=== PATIENT | female | born 1975 | race Caucasian/White ===

== ENCOUNTER 2020-06-01 03:06 | Emergency (ER) | payer BC, SELFPAY ==
[2020-06-01 03:09] VITALS: BP 146/121; PULSE 100; RESP 16; TEMP 36.7; O2SAT 98; BMI 35.5
--- NOTE | 2020-06-01 03:12 | ED.DCSUM_ITS ---
History of Present Illness Chief Complaint: Flank Pain Informant: Patient Narrative: 45-year-old female with history of kidney stones presents with left-sided flank pain that began about 1 AM. She states been intermittent but now it is constant. She states she has been having episodes of hematuria for months. She has had to have lithotripsy and laser ablation for previous kidney stones. She has previously seen Dr. Shields who is her urologist Prior similar symptoms: Yes Past Medical History - Allergies and Home Meds Allergies/Adverse Reactions: Allergies citalopram [From Celexa] Allergy (Verified 06/01/20 03:08) Nausea tape Allergy (Uncoded 06/01/20 03:08) Rash Primary Care Physician: [facility] Doctor,Out of [NON-STAFF] - Prior records reviewed: Yes Past Medical History: - - Depression, Narcalepsy Surgical History: - - Lithotripsy, laser ablation calculi Smoking Status: Current every day smoker Review of Systems General: Denies: Chills, Fever, Sweats Eyes: Denies: Visual changes - bilaterally, Diplopia ENT: Denies: Rhinorrhea, Sore throat Cardiovascular: Denies: Chest pain, Palpitations Respiratory: Denies: Dyspnea, Cough, Dyspnea on exertion Gastrointestinal: Reports: Abdominal pain, Nausea. Denies: Melena, Hematochezia Musculoskeletal: Reports: - - Left flank pain. Denies: Myalgias, Arthralgias Skin: Denies: Rash Neurological: Denies: Headache Psych: Denies: Depression, Anxiety Physical Exam Inital Vital Signs reviewed: Yes General: Obese, No Acute Distress Head: Normocephalic, Atraumatic Eyes: Perrl, EOMI ENT: Moist mucous membranes Cardiovascular: Regular rate, Regular rhythm Respiratory: No distress, CTA bilaterally Abdomen: Soft - Mild tenderness to palpation left flank/left lower quadrant. abdomen non-peritoneal. Back: CVA tenderness - Left Extremities: Nontender Skin: Normal color, No rash Neurological: Alert, Oriented x3 Diagnostic/Tx/Re-eval Laboratory Data 06/01/20 06/01/20 06/01/20 03:10 03:22 03:22 WBC 8.4 RBC 4.95 Hgb 14.1 Hct 42.8 MCV 86.5 MCH 28.5 MCHC 32.9 RDW Std Deviation 39.5 RDW Coeff of Joce 12.6 Plt Count 219 MPV 9.9 Immature Gran % (Auto) 0.400 Neut % (Auto) 53.1 Lymph % (Auto) 35.6 [place] % (Auto) 7.3 Eos % (Auto) 2.9 Baso % (Auto) 0.7 Absolute Neuts (auto) 4.5 Absolute Lymphs (auto) 2.98 Nucleated RBC % 0 Differential Comment COMMENT Sodium 137 Potassium 4.1 Chloride 106 Carbon Dioxide 25.0 Anion Gap 6 BUN 15 Creatinine 1.12 H Estim Creat Clear Calc 60.63 Est GFR (MDRD) Af Amer 68 Est GFR (MDRD) Non-Af 56 L BUN/Creatinine Ratio 13.4 Glucose 135 H Calcium 9.2 Urine Color Red Urine Clarity Turbid Urine pH 5.0 Ur Specific [place] 1.030 Urine Protein 100 H Urine Glucose (UA) Normal Urine Ketones 15 H Urine Occult Blood 250 H Urine Nitrite Negative Urine Bilirubin Negative Urine Urobilinogen 1 H Ur Leukocyte Esterase 25 H Urine RBC > 100 SEEN Urine WBC 5-10 SEEN Ur Squamous Epith Cells 0-5 SEEN Ur Transition Epith Cell 0-5 SEEN Urine Bacteria 2+ Urine Mucus [address] abdomen pelvis without contrast: 7 mm stone in the distal left ureter, above the ureterovesicular junction, with changes of mild acute obstructive uropathy - Medical Decision Making Presents with left flank pain and hematuria. This started about 1 AM. She does have a significant history of kidney stones. Patient was given Toradol, morphine, Zofran and felt much improved. Her blood work was unremarkable. Urinalysis does show blood as well as leukocyte esterase and 2+ bacteria. Believe this is contaminated however. This was sent for culture. Patient states she is currently on Augmentin for a dental issue. Patient states that she can follow-up with her urologist, Dr. Shields if her symptoms are not improving. She was given return precautions Impression: 1. 7 mm ureteral stone 1. Hematuria ED Disposition - Plan for ED Patient: Disposition: Home or Assisted Living Instructions: ED Renal Stone w Col[facility] Referrals: [facility],Out of [NON-STAFF] -
[2020-06-01 03:13] LABS: Mucous, Urine 0 SEEN /hpf (<or=2+)
[2020-06-01 03:17] LABS: Color, Urine Red (Yellow); Glucose, Dipstick Normal (Normal); Ketone-Dipstick 15 mg/dl (Negative); Leukocyte Esterase-Dipstick 25 /ul (Negative); Nitrite-Dipstick Negative (Negative); Occult Blood-Urine 250 /ul (Negative); Protein-Dipstick 100 mg/dl (Negative); Urine Bilirubin Dipstick Negative (Negative); Urine Clarity Turbid (Clear); Urine Urobilinogen 1 mg/dl (Normal)
[2020-06-01] MEDS: Ondansetron 4 MG/2 ML Vial IV (03:21)
[2020-06-01] MEDS: Ketorolac 30 MG/ML Syringe IV (03:22)
[2020-06-01] MEDS: Morphine 4 MG/ML Syringe IV (03:28)
[2020-06-01 03:29] LABS: Absolute Lymphocyte Count 2.98 X10^3/uL (0.83-4.51); Absolute Neutrophil Count 4.5 X10^3/uL (2.0-7.7); Basophil# 0.06 X10^3/uL; Basophil% 0.7 % (0-1); Eosinophil# 0.24 X10^3/uL; Eosinophils% 2.9 % (0-5); Hematocrit 42.8 % (37-47); Hemoglobin 14.1 g/dL (12.0-15.0); Lymphocyte # 2.98 X10^3/ul (4.0); Lymphocyte % 35.6 % (19-41); Mean Corp Hgb Conc 32.9 g/dL (32-36); Mean Corpuscular Hgb 28.5 pg (27.0-32.0); Mean Corpuscular Volume 86.5 fL (81-99); Mean Platelet Vol. 9.9 fl (6.2-12.0); Monocyte# 0.61 X10^3/uL; Monocyte% 7.3 % (0-10); NRBC Flagged by Analyzer 0 % (0-5); Neutrophil # 4.45 X10^3/uL (2.7-7.7); Neutrophil % 53.1 % (47-70); POSITIVE COUNT YES; Platelet Count 219 K/mm3 (150-450); RBC Distribution Width CV 12.6 % (11.6-14.6); RBC Distribution Width SD 39.5 fl (35.1-43.9); Red Blood Count 4.95 M/mm3 (4.2-5.4); White Blood Count 8.4 K/mm3 (4.4-11.0)
[2020-06-01 03:31] LABS: Differential Indicated SCAN CRITERIA MET
[2020-06-01 03:33] LABS: Red Blood Cells-Urine > 100 SEEN /hpf (0-5)
[2020-06-01 03:34] LABS: White Blood Cells 5-10 SEEN /hpf (0-5)
[2020-06-01 03:35] LABS: Squamous Epithelial Cells - UA 0-5 SEEN /hpf (5-10)
[2020-06-01 03:38] LABS: Transitional Epithelial - Ur 0-5 SEEN /hpf (0-5)
[2020-06-01 03:39] LABS: Bacteria 2+ /hpf (None Seen)
--- NOTE | 2020-06-01 03:45 | CT_ITS ---
STUDY: CT ABDOMEN AND PELVIS WITHOUT CONTRAST REASON FOR EXAM: Female, 45 years old. LEFT FLANK PAIN, HX KS WITH 2 LITHOTRIPSY''S, HYSTERECTOMY RADIATION DOSAGE (If Supplied By Facility): CTDIvol = ( 33.59 ) mGy, DLP = ( 1795.82 ) mGycm TECHNIQUE: Transaxial images were obtained from the dome of the diaphragm to the symphysis pubis without oral contrast, and without intravenous contrast. Sagittal and coronal images were reconstructed. Individualized dose optimization techniques were used for this CT. COMPARISON: None. FINDINGS: The visualized lung bases are unremarkable. The visualized portions of the heart are within normal limits. There is decreased attenuation of the liver consistent with steatosis. Hepatomegaly. Normal gallbladder and extrahepatic biliary system. Normal spleen. Normal pancreas. Normal bilateral adrenal glands. Bilateral nonobstructing renal stones. 7 mm stone in the distal left ureter, above the ureterovesical junction, with changes of mild acute obstructive uropathy. Normal visualized stomach. Normal small intestine. Normal colon. The appendix is visualized and appears normal. Normal abdominal aorta. Normal inferior vena cava. Normal retroperitoneum. Normal urinary bladder. Normal abdominal wall. Postoperative lower lumbar changes. CT/Abdomen/Pelvis without Cont IMPRESSION: 7 mm stone in the distal left ureter, above the ureterovesical junction, with changes of mild acute obstructive uropathy. Electronically Signed: Rolando Goldstein MD at 4:28 EDT Tel , Service support ,
[2020-06-01 03:58] LABS: Anion Gap 6 (5-15); BUN 15 mg/dL (7-18); BUN/Creat Ratio 13.4 RATIO (10-20); Calcium,Total 9.2 mg/dL (8.5-10.1); Chloride 106 mmol/L (98-107); Creatinine, Serum 1.12 mg/dL (0.55-1.02); EST Glomerular Filtration Rate 56 mL/min (>60); Est Glom Filt Rate - Afr Amer 68 mL/min (>60); Estimated Creatinine Clearance 60.63 ml/min; Glucose 135 mg/dL (74-106); Potassium 4.1 mmol/L (3.5-5.1); Sodium Level 137 mmol/L (136-145)
[2020-06-01] MEDS: proMETHazine 25 MG/ML Syringe 12.5 MG IV (05:08)
[2020-06-01] MEDS: oxyCODONE 5 MG Tablet PO (05:13)
[2020-06-01 05:23] VITALS: BP 133/85; PULSE 87; RESP 16; O2SAT 98
== END 2020-06-01 05:43 | disposition home or self-care (01) ==
PROVIDERS: Emergency Provider Student in an Organized Health Care Education/Training Program
DX: N20.1 Calculus of ureter (principal); Z87.442 Personal history of urinary calculi; F17.200 Nicotine dependence, unspecified, uncomplicated; F32.9 Major depressive disorder, single episode, unspecified; E66.9 Obesity, unspecified
CPT/HCPCS: 74176; 80048; 81001; 85025; 87086; 96374; 96375; 99285; J7030; A4216; J2405

== ENCOUNTER 2020-06-05 10:59 | Day surgery (SDC) | payer BC, SELFPAY ==
[2020-06-05 11:15] VITALS: BP 118/73; PULSE 84; RESP 5; TEMP 36.4; O2SAT 99; BMI 38.5
[2020-06-05] MEDS: Lactated Ringers 1,000 ML 100 ML IV (11:25)
--- NOTE | 2020-06-05 11:33 | PCM.HP.STD ---
Problem List (1) Left ureteral calculus Status: Acute History of Present Illness Date of Admission: 06/05/20 Chief Complaint: Left obstructing ureteral calculi The patient is a 45 year old female who presents with obstructing stone in the distal left ureter plan to proceed with left ureteroscopy and laser lithotripsy of stone Past Medical History Allergies citalopram [From Celexa] Allergy (Verified 06/05/20 11:03) Nausea tape Allergy (Uncoded 06/05/20 11:03) Rash Home Medications: Ambulatory Orders Medication Instructions Recorded Amoxicillin/Potassium Clav 1 ea PO BID 06/01/20 [Augmentin 500-125 Tablet] Aripiprazole [Abilify] 2 mg PO DAILY 06/01/20 Dextroamphetamine/Amphetamine 10 mg PO BID 06/01/20 [Adderall 10 mg Tablet] Lactobacillus Acidophilus 1 ea PO DAILY 06/01/20 [Acidophilus Lactobacilli] Ondansetron [Ondansetron Odt] 4 mg PO Q8H PRN PRN #20 tab.rapdis 06/01/20 Tamsulosin HCl [Flomax] 0.4 mg PO DAILY #14 cap 06/01/20 buPROPion XL [Wellbutrin Xl] 300 mg PO DAILY 06/01/20 Surgical History: - - Lithotripsy, laser ablation calculi Smoking Status: Former smoker Tobacco Use: Non-smoker Review of Systems Constitutional: Denies: Chills, Fever, Weight Change HEENT: Denies: Head Aches, Sinus Congestion, Sinus Drainage Cardiovascular: Denies: Chest Pain, Palpitations Respiratory: Denies: Cough, Shortness of breath at rest, Sputum production Gastrointestinal: Denies: Abdominal Pain, Nausea, Vomiting Genitourinary: Denies: Dysuria Musculoskeletal: Denies: Joint Pain, Joint Tenderness Skin: Denies: Rash, Wounds Neurological: Denies: Numbness, Tingling, Focal weakness Psychiatric: Denies: Anxiety, Depression, Homicidal Ideations, Suicidal Ideations Hematologic/ Lymphatic: Denies: Easy Bruising, Easy Bleeding VTE Information - Inpt Only VTE Present on Admission: No VTE Mechan Device Prophylaxis: SCD's Patient Problems: Active and Suspected Problems Left ureteral calculus (Acute) - Physical Exam Vitals/I&O's: Vital Signs Temp Pulse Resp BP Pulse Ox 97.6 F L 84 5 L 118/73 99 06/05/20 11:15 06/05/20 11:15 06/05/20 11:15 06/05/20 11:15 06/05/20 11:15 Oxygen Delivery Method Room Air Weight: 108.1 kg Body Mass Index (BMI) 38.5 General: Alert, Oriented x3, Cooperative HEENT: Atraumatic, PERRLA, EOMI, Normocephalic Neck: Supple, No JVD, Negative Carotid Bruits Lungs: Clear to auscultation, Normal air movement Cardiovascular: Regular rate, No murmurs Abdomen: Bowel Sounds Present, Soft, Non Tender Extremities: No edema, Capillary Refill Less than 3 Seconds Skin: No rashes, No breakdown Musculoskeletal: No Tenderness to Palpation of Joints or Extremities Neurological: Cranial nerves II-XII grossly intact Psych/Mental Status: Normal Affect, Appropriate Current Medications Lactated Ringer's () 1,000 mls @ 100 mls/hr IV .Q10H INA Last Admin: 06/05/20 11:25 Dose: 100 mls/hr Documented by: Assessment/Plan All Active Problems Left ureteral calculus (Acute) Plan for left ureteroscopy laser lithotripsy of stone
--- NOTE | 2020-06-05 11:35 | DCINST_ITS ---
Discharge Diet: No Restrictions, Light diet - advance as tolerated Discharge Activity: Return to Normal Activity, May Not Drive - for 2 days. Additional Activity Instructions:: Please be aware that pain medications may cause nausea. You should typically eat light foods as you take your pain medication. Pain medication may cause constipation, if this is a problem for you, please discuss with your doctor. Allergies/Adverse Reactions: Allergies citalopram [From Celexa] Allergy (Verified 06/05/20 11:03) Nausea tape Allergy (Uncoded 06/05/20 11:03) Rash Medications to take at Discharge Amoxicillin/Potassium Clav [Augmentin 500-125 Tablet] 1 ea PO BID 06/01/20 Aripiprazole [Abilify] 2 mg PO DAILY 06/01/20 Dextroamphetamine/Amphetamine [Adderall 10 mg Tablet] 10 mg PO BID 06/01/20 Lactobacillus Acidophilus [Acidophilus Lactobacilli] 1 ea PO DAILY 06/01/20 Ondansetron [Ondansetron Odt] 4 mg PO Q8H PRN PRN #20 tab.rapdis 06/01/20 Tamsulosin HCl [Flomax] 0.4 mg PO DAILY #14 cap 06/01/20 buPROPion XL [Wellbutrin Xl] 300 mg PO DAILY 06/01/20 Primary Care Physician: GABRIELA GUERRERO [Other] Test Results: Test results from this visit will be discussed in further detail at your follow- up appointment, if applicable. Please Follow Up With: Dylon Prince MD When: please call to make an appointment with an XRay
[2020-06-05] MEDS: Cefazolin 2 GM in 0.9% Normal Saline 100 ML IV (11:58)
--- NOTE | 2020-06-05 12:21 | OP.PCM_ITS ---
Problem List (1) Left ureteral calculus Status: Acute Report of Operation Date of Procedure: 06/05/20 Pre-Operative Diagnosis: Left ureteral calculi Post-Operative Diagnosis: Same Surgery/Procedure Performed:: Cystoscopy, balloon dilation of the left ureter, left ureteroscopy laser surgery of stone left stent placement Description of Surgical Findings:: 45-year-old female taken back to the operating room at the smooth induction of general anesthesia she was placed in dorsolithotomy position, the urethra and vaginal area prepped and draped in usual sterile fashion, went into the bladder with a 21 [place] rigid cystourethroscope cannulated the left ureteral orifice with a Glidewire advanced a wire past the stone balloon dilated the distal left ureter. I then went up to the stone and was able to reach the stone with a semirigid ureteroscope I then engage the stone and laser lithotripsy using a 275 ?m laser fiber laser the stone little tiny pieces, the stone broke up with low tiny pieces all flushed into the bladder I then advanced a wire up into the kidney of the wire place a stent a 6 [place]gasque by 24 cm stent. Patient's bladder was drained anesthetic was reversed plan to see her next week with an x-ray and we can plan to treat the other remaining stones in the kidney with shockwave lithotripsy. Type of Anesthesia:: General Drains: stent left side
[2020-06-05 12:27] VITALS: BP 105/80; BP 118/73; PULSE 103; RESP 18; TEMP 36.4; O2SAT 97
[2020-06-05] MEDS: Ketorolac 30 MG/ML Syringe IV (12:36)
[2020-06-05 12:45] VITALS: BP 102/77; BP 118/73; PULSE 91; RESP 16; O2SAT 92
[2020-06-05 12:56] VITALS: BP 114/81; BP 118/73; PULSE 88; RESP 16; TEMP 36.4; O2SAT 94
[2020-06-05 14:10] VITALS: BP 118/73
== END 2020-06-05 14:13 | disposition home or self-care (01) ==
LOC: SDC 11:01 → AC 11:05
PROVIDERS: Anesthesiology; Referring Provider Urology; Visit Provider Urology
PROC: 0TJ98ZZ Inspection of Ureter, Via Natural or Artificial Opening Endoscopic (ICD-10-PCS; CPT 52352; principal; 2020-06-05 12:55)
DX: N20.1 Calculus of ureter (principal); F41.9 Anxiety disorder, unspecified; F32.9 Major depressive disorder, single episode, unspecified; Z11.59 Encounter for screening for other viral diseases; Z79.899 Other long term (current) drug therapy; Z87.891 Personal history of nicotine dependence; Z86.711 Personal history of pulmonary embolism; Z87.442 Personal history of urinary calculi
CPT/HCPCS: 00918; 52356; 87635; G2023; J7120; C2617; J2405; U0003

== ENCOUNTER 2020-07-24 07:51 | Day surgery (SDC) | payer BC, SELFPAY ==
--- NOTE | 2020-07-24 07:53 | RAD_ITS ---
STUDY: X-RAY - ABDOMEN/PELVIS REASON FOR EXAM: Female, 45 years old. PRE OP BILATERAL KIDNEY STONES TECHNIQUE: Single AP view of the abdomen / pelvis. COMPARISON: None. FINDINGS: Normal visualized lung bases. There is a moderate amount of colonic fecal material. There is a 1.2 cm calculus in the mid inferior pole of the right kidney. There is also evidence of a 5.4 mm calculus in the lower pole calyx of the left kidney. Normal soft tissue structures. The patient is status post fusion at the L5-S1 level. RAD/Abdomen Single View IMPRESSION: Bilateral intrarenal calculi as described. Electronically Signed: Maged Wang, at 15:13 EDT , Service support ,
[2020-07-24 08:41] VITALS: BP 122/92; PULSE 78; RESP 18; TEMP 36.7; O2SAT 95; BMI 39.2
[2020-07-24] MEDS: Lactated Ringers 1,000 ML 100 ML IV (08:47)
[2020-07-24] MEDS: Cefazolin 2 GM in 0.9% Normal Saline 100 ML IV (09:51)
--- NOTE | 2020-07-24 10:05 | PCM.HP.STD ---
Problem List (1) Renal calculi Status: Acute History of Present Illness Date of Admission: 07/24/20 Chief Complaint: bilateral renal calculi The patient is a 45 year old Female with bilateral renal calculi plan for bilateral ESWL Past Medical History Allergies citalopram [From Celexa] Allergy (Verified 07/24/20 08:29) Nausea tape Allergy (Uncoded 07/24/20 08:29) Rash Home Medications: Ambulatory Orders Medication Instructions Recorded Aripiprazole [Abilify] 10 mg PO DAILY 06/01/20 Dextroamphetamine/Amphetamine 10 mg PO BID 06/01/20 [Adderall 10 mg Tablet] buPROPion XL [Wellbutrin Xl] 300 mg PO DAILY 06/01/20 Potassium Citrate [Urocit-K] 10 meq PO BID 07/17/20 Surgical History: - - Lithotripsy, laser ablation calculi Smoking Status: Former smoker Tobacco Use: Non-smoker Review of Systems Constitutional: Denies: Chills, Fever, Weight Change HEENT: Denies: Head Aches, Sinus Congestion, Sinus Drainage Cardiovascular: Denies: Chest Pain, Palpitations Respiratory: Denies: Cough, Shortness of breath at rest, Sputum production Gastrointestinal: Denies: Abdominal Pain, Nausea, Vomiting Genitourinary: Denies: Dysuria Musculoskeletal: Denies: Joint Pain, Joint Tenderness Skin: Denies: Rash, Wounds Neurological: Denies: Numbness, Tingling, Focal weakness Psychiatric: Denies: Anxiety, Depression, Homicidal Ideations, Suicidal Ideations Hematologic/ Lymphatic: Denies: Easy Bruising, Easy Bleeding VTE Information - Inpt Only VTE Present on Admission: No Patient Problems: Active and Suspected Problems Renal calculi (Acute) - Physical Exam Vitals/I&O's: Vital Signs Temp Pulse Resp BP Pulse Ox 98.0 F 78 18 122/92 H 95 07/24/20 08:41 07/24/20 08:41 07/24/20 08:41 07/24/20 08:41 07/24/20 08:41 Oxygen Delivery Method Room Air Weight: 110.3 kg Body Mass Index (BMI) 39.2 General: Alert, Oriented x3, Cooperative HEENT: Atraumatic, PERRLA, EOMI, Normocephalic Neck: Supple, No JVD, Negative Carotid Bruits Lungs: Clear to auscultation, Normal air movement Cardiovascular: Regular rate, No murmurs Abdomen: Bowel Sounds Present, Soft, Non Tender Extremities: No edema, Capillary Refill Less than 3 Seconds Skin: No rashes, No breakdown Musculoskeletal: No Tenderness to Palpation of Joints or Extremities Neurological: Cranial nerves II-XII grossly intact Psych/Mental Status: Normal Affect, Appropriate Current Medications Lactated Ringer's () 1,000 mls @ 100 mls/hr IV .Q10H INA Last Admin: 07/24/20 08:47 Dose: 100 mls/hr Documented by: Assessment/Plan All Active Problems Left ureteral calculus (Acute) Renal calculi (Acute) plan for bilateral ESWL, possible stents?
[2020-07-24] MEDS: Ketorolac 15 MG/ML Vial IV (10:07)
--- NOTE | 2020-07-24 10:08 | DCINST_ITS ---
Discharge Diet: No Restrictions, Light diet - advance as tolerated Discharge Activity: Return to Normal Activity, May Not Drive - for 2 days. Additional Activity Instructions:: Please be aware that pain medications may cause nausea. You should typically eat light foods as you take your pain medication. Pain medication may cause constipation, if this is a problem for you, please discuss with your doctor. Allergies/Adverse Reactions: Allergies citalopram [From Celexa] Allergy (Verified 07/24/20 08:29) Nausea tape Allergy (Uncoded 07/24/20 08:29) Rash Medications to take at Discharge Aripiprazole [Abilify] 10 mg PO DAILY 06/01/20 Dextroamphetamine/Amphetamine [Adderall 10 mg Tablet] 10 mg PO BID 06/01/20 buPROPion XL [Wellbutrin Xl] 300 mg PO DAILY 06/01/20 Potassium Citrate [Urocit-K] 10 meq PO BID 07/17/20 Oxycodone HCl/Acetaminophen [Percocet 5/325] 1 tablet PO Q4H PRN PRN 5 Days #20 tablet 07/24/20 Tamsulosin HCl [Flomax] 0.4 mg PO DAILY #10 cap 07/24/20 The following prescriptions were given: Tamsulosin HCl [Flomax] 0.4 mg PO DAILY #10 cap Transmission Status: Pending to [id number] Oxycodone HCl/Acetaminophen [Percocet 5/325] 1 tablet PO Q4H PRN PRN 5 Days #20 tablet PRN Reason: Pain Transmission Status: Received by [id number] Orders to be completed after discharge: Abdomen Single View [RAD] Time Frame: 07/24/20, Facility: [facility], Location: [facility] Primary Care Physician: GABRIELA GUERRERO [Other] Test Results: Test results from this visit will be discussed in further detail at your follow- up appointment, if applicable. Please Follow Up With: Dylon Prince MD When: in 2 weeks, please call to make an appointment.
--- NOTE | 2020-07-24 11:15 | PCM.OPRPT ---
Problem List (1) Renal calculi Status: Acute Report of Operation Date of Procedure: 07/24/20 Pre-Operative Diagnosis: Bilateral renal calculi Post-Operative Diagnosis: Same Surgery/Procedure Performed:: Bilateral shockwave lithotripsy no stents Description of Surgical Findings:: 45-year-old female taken back to the operating room after smooth induction of general anesthesia she was placed supine on the lithotripter table we first started the left kidney under fluoroscopy. Identify the stone the stone was put in the F2 focal point of the lithotripter machine we then delivered shockwaves to the stone at 90/min power ranging from 5 to 7 kV and at the end of 2500 shockwaves the stone it broken up really well successful treatment of the stone we then went to the right side we repositioned the patient on the table we found the right kidney stone and we again treated this kidney stone with 3000 shockwaves at her rate of 90/min up to 7 kV. At the end of 3000 shockwaves a stone it broken up quite well. At this point the patient anesthetic was reversed both stones were treated both stones broke up really well and we decided to place no stents patient acetic was reversed she is taken back to PACU in good condition and follow-up in a few weeks with an x-ray. Type of Anesthesia:: General Drains: none - Admit VTE Documentation VTE Present on Admission: No VTE Mechan Device Prophylaxis: SCD's
[2020-07-24 11:21] VITALS: BP 122/92; BP 134/81; PULSE 87; RESP 17; TEMP 36.2; O2SAT 99
[2020-07-24 11:30] VITALS: BP 122/92; BP 133/85; PULSE 90; RESP 16; O2SAT 100
[2020-07-24 11:45] VITALS: BP 122/92; BP 134/75; PULSE 75; RESP 16; O2SAT 99
[2020-07-24 11:55] VITALS: BP 111/55; BP 122/92; PULSE 76; RESP 16; TEMP 35.9; O2SAT 97
[2020-07-24 12:25] VITALS: BP 122/92
== END 2020-07-24 12:36 | disposition home or self-care (01) ==
LOC: SDC 07:53 → AC 07:54
PROVIDERS: Anesthesiology; Referring Provider Urology; Visit Provider Urology
PROC: (CPT 50590; principal; 2020-07-24 09:45)
DX: N20.0 Calculus of kidney (principal); F41.9 Anxiety disorder, unspecified; F32.9 Major depressive disorder, single episode, unspecified; E66.01 Morbid (severe) obesity due to excess calories; Z68.39 Body mass index [BMI] 39.0-39.9, adult; Z11.59 Encounter for screening for other viral diseases; Z79.899 Other long term (current) drug therapy; Z87.442 Personal history of urinary calculi; Z87.891 Personal history of nicotine dependence; Z86.711 Personal history of pulmonary embolism; Z86.718 Personal history of other venous thrombosis and embolism
CPT/HCPCS: 50590; 74018; 87635; C9803; J7120; J2405; U0003

== ENCOUNTER → 2020-08-15 | Outpatient (CLI) | payer BC, SELFPAY ==
[2020-07-24 08:41] VITALS: BMI 39.2
--- NOTE | 2020-08-15 13:37 | RAD_ITS ---
STUDY: X-RAY - ABDOMEN/PELVIS REASON FOR EXAM: Female, 45 years old. F/U TO BILATERAL ESWL FOR BILATERAL STONES xFEW WEEKS AGO TECHNIQUE: Single AP view of the abdomen / pelvis. COMPARISON: 07/24/2020 FINDINGS: Normal visualized lung bases. There is an unremarkable bowel gas pattern. Stones in the lower poles of both kidneys. No definite ureteral stone. Normal soft tissue structures. Normal visualized osseous structures. RAD/Abdomen Single View IMPRESSION: Bilateral renal stones. No definite ureteral stone. Electronically Signed: Chris Leary MD at 10:44 EDT Tel , Service support ,
== END | disposition home or self-care (01) ==
LOC: RAD.FUTURE 13:32
PROVIDERS: Referring Provider Urology; Visit Provider Urology
DX: N20.0 Calculus of kidney (principal)
CPT/HCPCS: 74018

== ENCOUNTER 2020-09-16 19:05 | Emergency (ER) | payer BC, SELFPAY ==
[2020-09-16 19:06] VITALS: BP 168/99; PULSE 102; RESP 16; TEMP 36.1; O2SAT 98; BMI 38.4
--- NOTE | 2020-09-16 19:24 | CT_ITS ---
HISTORY: RIGHT FLANK PAIN SINCE THIS AM. ANURIA, LITHO 6 WKS AGO BLKS TECHNIQUE: Helically acquired images were obtained of the abdomen and pelvis without oral or IV contrast. A radiation dose optimization technique was used for this scan. COMPARISON: June 01, 2020 FINDINGS: # of images incl. paperwork: 530 LUNG BASES: Scarring within the left costophrenic sulcus of the left lower lobe is the same. The remainder the visualized lung bases are clear. The heart is not enlarged. CT abdomen: Patient has had posterior spinal fixation surgery at the L5-S1 level with fusion across the intervertebral disc space with a prosthetic disc spacer, as well as fusion across the facets. The gallbladder remains. Hepatomegaly and hepatic steatosis. Thespleen, pancreas, and adrenal glands are normal. The left kidney contains several nonobstructing nephroliths. No left hydronephrosis. Right perirenal edema, right hydronephrosis, and right hydroureter. Within the distal right ureter, at the right ureterovesicular junction is a 4 x 5 mm obstructing stone.. The aorta is diseased with atherosclerotic plaque, but without aneurysm.. There is no intra-or extrahepatic biliary ductal dilatation. CT pelvis: No ascites is present. The uterus has been resected. The appendix is normal. Series 2 image 123. The bladder is decompressed. Bowel gas pattern is normal. CT/Abdomen/Pelvis without Cont IMPRESSION: 5 x 4 mm right UVJ stone with right hydronephrosis Individualized dose optimization techniques were used for this CT. at 2055 Reported and signed by: Elder Morales MD Electronically Signed: Elder Morales MD at 20:54 EST Tel , Service support ,
--- NOTE | 2020-09-16 19:26 | ED.DCSUM_ITS ---
History of Present Illness Chief Complaint: Complaint Informant: Patient Narrative: Patient is a 45-year-old female who presents to the emergency department for right-sided flank pain. It starts in the back and wraps around to her right hip. She has had this pain before when she had a kidney stone. She had lithotripsy performed 6 weeks ago. Her symptoms started again earlier today. She has not been able to urinate very much but denies any dysuria or hematuria. No significant abdominal pain. No chest pain or shortness of breath. She denies any nausea vomiting. No fevers or chills. She did try taking [place] for her symptoms which did not give her significant relief. She currently rates her pain as a 7 out of 10. No diarrhea, constipation or blood in stool. Past Medical History - Allergies and Home Meds Allergies/Adverse Reactions: Allergies citalopram [From Celexa] Allergy (Verified 09/16/20 19:08) Nausea tape Allergy (Uncoded 09/16/20 19:08) Rash Primary Care Physician: GABRIELA GUERRERO [Other] Marylu Bill MD [STAFF PHYSICIAN] - Prior records reviewed: Yes - depression Surgical History: - - Lithotripsy, laser ablation calculi Smoking Status: Former smoker Review of Systems All systems negative except as indicated General: Denies: Chills, Fever, Sweats Eyes: Denies: Visual changes - bilaterally, Diplopia ENT: Denies: Rhinorrhea, Sore throat Cardiovascular: Denies: Chest pain, Palpitations Respiratory: Denies: Dyspnea, Cough, Dyspnea on exertion Gastrointestinal: Reports: Abdominal pain. Denies: Nausea, Vomiting, Diarrhea, Melena, Hematochezia Genitourinary: Denies: Dysuria, Hematuria, Frequency Musculoskeletal: Reports: Back pain - Right flank pain. Denies: Extremity Pain Skin: Denies: Rash, Wounds Neurological: Denies: Headache, Weakness, Numbness Physical Exam Vital Signs/Narrative: Vital Signs Temp Pulse Resp BP Pulse Ox 09/16/20 19:06 97 F L 102 H 16 168/99 H 98 Inital Vital Signs reviewed: Yes General: Well nourished, Well developed, No Acute Distress Head: Normocephalic, Atraumatic Eyes: Perrl, EOMI ENT: Moist mucous membranes, No rhinorrhea Neck: Supple, Nontender Cardiovascular: Regular rate, Regular rhythm, No murmurs Respiratory: No distress, CTA bilaterally, Chest nontender Abdomen: Soft, Nontender, Nondistended, Normal bowel sounds Back: Nontender, Normal Inspection, CVA tenderness - Right sided flank pain Extremities: Nontender, No edema Skin: Normal color, No rash Neurological: Alert, Oriented x3, Cranial nerves II-XII grossly intact, Normal Strength, Normal Sensation Psychological: Normal affect, Normal Mood Diagnostic/Tx/Re-eval - Medical Decision Making Patient presents to the emergency department for right-sided flank pain. She is concerned about a kidney stone. Will check basic lab work, urinalysis and CT scan of the abdomen/pelvis. Will give symptomatic treatment with Toradol and morphine. Patient symptoms much better after treatment. CT scan did show an obstructing stone on the right at the UVJ. No evidence of urinary tract infection. She does feel comfortable going home at this time. Will discharge home in stable condition. She still has [place] and oxycodone at home. Will write for Naprosyn and Flomax. She is to follow-up with her urologist, Dr. Prince. Warning signs and symptoms for which to return to the ED were reviewed with her. She understands and is agreeable this plan. Will discharge home in stable condition. All questions answered. ED Disposition - Plan for ED Patient: Disposition: Home or Assisted Living Diagnosis: Right ureteral calculus, Flank pain Instructions: ED Renal Stone w Colic Prescriptions: Tamsulosin HCl [Flomax] 0.4 mg PO DAILY #5 cap Transmission Status: Received by [facility]/pharmacy #[id number] Naproxen [Naprosyn] 500 mg PO BID #20 tab Transmission Status: Received by [facility]/pharmacy #[id number] Referrals: GABRIELA GUERRERO [Other] Dylon Prince MD [STAFF PHYSICIAN] - 3-5 Days
[2020-09-16] MEDS: Ketorolac 15 MG/ML Vial IV (19:42)
[2020-09-16] MEDS: Morphine 4 MG/ML Syringe IV (19:43)
[2020-09-16 19:53] LABS: Bacteria 0 SEEN /hpf (None Seen); Mucous, Urine 0 SEEN /hpf (<or=2+); White Blood Cells 0 SEEN /hpf (0-5)
[2020-09-16 19:58] LABS: Color, Urine Yellow (Yellow); Glucose, Dipstick Normal (Normal); Internal QC Validated? YES +Cl - CLEAR BKGD; Ketone-Dipstick Negative (Negative); Leukocyte Esterase-Dipstick Negative /ul (Negative); Nitrite-Dipstick Negative (Negative); Occult Blood-Urine 250 /ul (Negative); Pregnancy, Urine Negative Negative; Protein-Dipstick 30 mg/dl (Negative); Urine Bilirubin Dipstick Negative (Negative); Urine Clarity Clear (Clear); Urine Urobilinogen Normal (Normal)
[2020-09-16 19:59] LABS: Absolute Lymphocyte Count 3.43 X10^3/uL (0.83-4.51); Absolute Neutrophil Count 10.9 X10^3/uL (2.0-7.7); Basophil# 0.11 X10^3/uL; Basophil% 0.7 % (0-1); Eosinophil# 0.15 X10^3/uL; Hematocrit 42.4 % (37-47); Hemoglobin 13.4 g/dL (12.0-15.0); Lymphocyte # 3.43 X10^3/ul (4.0); Lymphocyte % 21.8 % (19-41); Mean Corp Hgb Conc 31.6 g/dL (32-36); Mean Corpuscular Hgb 27.3 pg (27.0-32.0); Mean Corpuscular Volume 86.5 fL (81-99); Mean Platelet Vol. 9.6 fl (6.2-12.0); Monocyte# 1.05 X10^3/uL; Monocyte% 6.7 % (0-10); NRBC Flagged by Analyzer 0 % (0-5); Neutrophil # 10.94 X10^3/uL (2.7-7.7); Neutrophil % 69.4 % (47-70); Platelet Count 344 K/mm3 (150-450); RBC Distribution Width CV 13.2 % (11.6-14.6); RBC Distribution Width SD 41.4 fl (35.1-43.9); White Blood Count 15.7 K/mm3 (4.4-11.0)
[2020-09-16 20:04] LABS: Red Blood Cells-Urine 5-10 SEEN /hpf (0-5); Squamous Epithelial Cells - UA 0-5 SEEN /hpf (5-10)
[2020-09-16 20:05] LABS: Calcium Oxalate Crystals Ur RARE /hpf (<or=2+)
[2020-09-16 20:08] LABS: Anion Gap 8 (5-15); BUN 20 mg/dL (7-18); BUN/Creat Ratio 14.8 RATIO (10-20); Calcium,Total 9.4 mg/dL (8.5-10.1); Chloride 106 mmol/L (98-107); Creatinine, Serum 1.35 mg/dL (0.55-1.02); EST Glomerular Filtration Rate 45 mL/min (>60); Est Glom Filt Rate - Afr Amer 55 mL/min (>60); Glucose 119 mg/dL (74-106); Sodium Level 139 mmol/L (136-145)
[2020-09-16 21:11] VITALS: BP 145/82; PULSE 89; RESP 18; O2SAT 98
== END 2020-09-16 21:12 | disposition home or self-care (01) ==
PROVIDERS: Emergency Provider Emergency Medicine
DX: N13.2 Hydronephrosis with renal and ureteral calculous obstruction (principal); Z87.442 Personal history of urinary calculi; Z87.891 Personal history of nicotine dependence
CPT/HCPCS: 74176; 80048; 81001; 81025; 85025; 96374; 96375; 99283; A4216

== ENCOUNTER 2020-09-20 11:10 | Day surgery (SDC) | payer BC, SELFPAY ==
[2020-09-20 11:50] VITALS: BP 118/62; PULSE 82; RESP 16; TEMP 36.6; O2SAT 96; BMI 39.2
[2020-09-20] MEDS: Lactated Ringers 1,000 ML 100 ML IV (12:05)
--- NOTE | 2020-09-20 12:57 | PCM.HP.STD ---
Problem List (1) Right ureteral calculus Status: Acute History of Present Illness Date of Admission: 09/20/20 Chief Complaint: Right ureteral calculi with obstruction The patient is a 45 year old female who underwent treatment of kidney stones back about 6 weeks ago with shockwave lithotripsy and with both kidneys recently she presented to the emergency room with a stone in the distal right ureter possible it is another fragment or fragment from the prior treatment but she is not been able to pass the stone so she is can be taken back to surgery today for right ureteroscopy laser of the stone and right stent placement will probably need to do balloon dilation of the ureter. Past Medical History Allergies citalopram [From Celexa] Allergy (Verified 09/20/20 11:49) Nausea tape Allergy (Uncoded 09/20/20 11:49) Rash Home Medications: Ambulatory Orders Medication Instructions Recorded Aripiprazole [Abilify] 10 mg PO DAILY 06/01/20 Dextroamphetamine/Amphetamine 10 mg PO BID 06/01/20 [Adderall 10 mg Tablet] buPROPion XL [Wellbutrin Xl] 300 mg PO DAILY 06/01/20 Tamsulosin HCl [Flomax] 0.4 mg PO DAILY #10 cap 07/24/20 Surgical History: - - Lithotripsy, laser ablation calculi Smoking Status: Former smoker Review of Systems Constitutional: Denies: Chills, Fever, Weight Change HEENT: Denies: Head Aches, Sinus Congestion, Sinus Drainage Cardiovascular: Denies: Chest Pain, Palpitations Respiratory: Denies: Cough, Shortness of breath at rest, Sputum production Gastrointestinal: Denies: Abdominal Pain, Nausea, Vomiting Genitourinary: Denies: Dysuria Musculoskeletal: Denies: Joint Pain, Joint Tenderness Skin: Denies: Rash, Wounds Neurological: Denies: Numbness, Tingling, Focal weakness Psychiatric: Denies: Anxiety, Depression, Homicidal Ideations, Suicidal Ideations Hematologic/ Lymphatic: Denies: Easy Bruising, Easy Bleeding VTE Information - Inpt Only VTE Present on Admission: No - Physical Exam Vitals/I&O's: Vital Signs Temp Pulse Resp BP Pulse Ox 97.8 F 82 16 118/62 96 09/20/20 11:50 09/20/20 11:50 09/20/20 11:50 09/20/20 11:50 09/20/20 11:50 Oxygen Delivery Method Room Air Weight: 110.2 kg Body Mass Index (BMI) 39.2 General: Alert, Oriented x3, Cooperative HEENT: Atraumatic, PERRLA, EOMI, Normocephalic Neck: Supple, No JVD, Negative Carotid Bruits Lungs: Clear to auscultation, Normal air movement Cardiovascular: Regular rate, No murmurs Abdomen: Bowel Sounds Present, Soft, Non Tender Extremities: No edema, Capillary Refill Less than 3 Seconds Skin: No rashes, No breakdown Musculoskeletal: No Tenderness to Palpation of Joints or Extremities Neurological: Cranial nerves II-XII grossly intact Psych/Mental Status: Normal Affect, Appropriate Microbiology Past 72 Hours 09/20/20 11:30 Mucosa - Nasopharyngeal - Final Current Medications Lactated Ringer's () 1,000 mls @ 100 mls/hr IV .Q10H INA Last Admin: 09/20/20 12:05 Dose: 100 mls/hr Documented by: Assessment/Plan All Active Problems Left ureteral calculus (Acute) Renal calculi (Acute) Right ureteral calculus (Acute) Plan to proceed with right ureteroscopy laser of stone and stent placement.
--- NOTE | 2020-09-20 13:01 | DCINST_ITS ---
Discharge Diet: Light diet - advance as tolerated, Soft diet Discharge Activity: May not drive while taking narcotic pain medications. Call your doctor if your incision/area has: Continuous Slow Oozing, Sudden Increased Bleeding, Increased Pain/ Swelling, Increased Redness, Foul Smelling Discharge, Swelling at the incision site Call your doctor if you observe: Fever of 101 or Higher Suture Line Care: Avoid Pulling/Pushing, Avoid Pinching/Bending Allergies/Adverse Reactions: Allergies citalopram [From Celexa] Allergy (Verified 09/20/20 11:49) Nausea tape Allergy (Uncoded 09/20/20 11:49) Rash Medications to take at Discharge Aripiprazole [Abilify] 10 mg PO DAILY 06/01/20 Dextroamphetamine/Amphetamine [Adderall 10 mg Tablet] 10 mg PO BID 06/01/20 buPROPion XL [Wellbutrin Xl] 300 mg PO DAILY 06/01/20 Tamsulosin HCl [Flomax] 0.4 mg PO DAILY #10 cap 07/24/20 Ciprofloxacin [Cipro] 500 mg PO BID #6 tab 09/20/20 Hydrocodone/Acetaminophen [[place] 5-325 Tablet] 1 each PO Q4H PRN PRN 7 Days #14 tablet 09/20/20 The following prescriptions were given: Ciprofloxacin [Cipro] 500 mg PO BID #6 tab Transmission Status: Pending to [facility] Hydrocodone/Acetaminophen [[place] 5-325 Tablet] 1 each PO Q4H PRN PRN 7 Days #14 tablet PRN Reason: Pain Score 1-10 Transmission Status: Sent to [facility] Primary Care Physician: EROS GUERRERO [Other] Test Results: Test results from this visit will be discussed in further detail at your follow- up appointment, if applicable. Please Follow Up With: Dylon Prince MD When: please call to make an appointment.
[2020-09-20] MEDS: Cefazolin 2 GM in 0.9% Normal Saline 100 ML IV (13:04)
[2020-09-20] MEDS: Lubricating Jelly 60 GM Tube 30 GM TOPICAL (13:20)
--- NOTE | 2020-09-20 13:29 | OP.PCM_ITS ---
Problem List (1) Right ureteral calculus Status: Acute Report of Operation Date of Procedure: 09/20/20 Pre-Operative Diagnosis: Right ureteral calculi Post-Operative Diagnosis: Same Surgery/Procedure Performed:: Cystoscopy, right retrograde pyelogram, interpretation fluoroscopic images, right ureteroscopy. Description of Surgical Findings:: 45-year-old female taken back to the operating room at the smooth induction of anesthesia she was placed in dorsolithotomy position went into the bladder with a 21 Chinese rigid cystourethroscope identified the right ureteral orifice cannulated this advance a wire up into the kidney advanced a second wire we performed a retrograde pyelogram difficult to see any stones retrograde pyelogram I then went in with a flexible ureteroscope went all the way to the kidney inspected the upper pole midpole lower pole the kidney worked my way down the ureter no stone fragment was seen along the ureter she must the past the stone fragment is about 6 mm in size. The patient did not report passing the stone fragment for the surgery. No stent was placed and bladder was drained anesthetic was reversed. Type of Anesthesia:: General Drains: none - Admit VTE Documentation VTE Present on Admission: No VTE Mechan Device Prophylaxis: SCD's
[2020-09-20 13:44] VITALS: BP 105/81; BP 118/62; PULSE 85; RESP 17; TEMP 36.2; O2SAT 98
[2020-09-20] MEDS: Ketorolac 15 MG/ML Vial IV (13:57)
[2020-09-20 14:00] VITALS: BP 118/62; BP 122/80; PULSE 65; RESP 16; O2SAT 100
[2020-09-20 14:12] VITALS: BP 116/74; BP 118/62; PULSE 72; RESP 16; TEMP 36.2; O2SAT 100
[2020-09-20 14:46] VITALS: BP 118/62; BP 135/90; PULSE 78; RESP 16; TEMP 36.2; O2SAT 95
== END 2020-09-20 14:56 | disposition home or self-care (01) ==
LOC: SDC 11:12 → AC 11:15
PROVIDERS: Visit Provider Urology
PROC: 0TJ98ZZ Inspection of Ureter, Via Natural or Artificial Opening Endoscopic (ICD-10-PCS; CPT 52352; principal; 2020-09-20 13:20)
DX: N20.1 Calculus of ureter (principal); E78.00 Pure hypercholesterolemia, unspecified; F41.9 Anxiety disorder, unspecified; F32.9 Major depressive disorder, single episode, unspecified; Z79.899 Other long term (current) drug therapy; Z87.442 Personal history of urinary calculi; Z87.891 Personal history of nicotine dependence; Z86.711 Personal history of pulmonary embolism
CPT/HCPCS: 52005; 76000; 87426; J7120; C1726; C1769; J2405

== ENCOUNTER 2022-10-03 20:13 | Emergency (ER) | payer OTHER, SELFPAY ==
[2022-10-03 20:14] VITALS: BP 137/90; PULSE 92; RESP 18; TEMP 36.8; O2SAT 97; BMI 31.1
--- NOTE | 2022-10-03 20:40 | EDS_ITS ---
HPI <NOHEMI Granado - Last Filed: 10/03/22 22:03> HPI - Female History of Present Illness Chief Complaint: Flank Pain Narrative Narrative: Patient presents with right flank pain that began 16 days ago. She states she saw her PCP for this issue 09/23/22 and she treated her with Bactrim for 3 days. When symptoms did not resolve she put her on Ciprofloxacin for 4 days. When symptoms did not resolve after this, she started her on Macrobid 10/02/22. She states her PCP did not physically see her in the office but treated her over the phone. She has a history of kidney stones and states this pain feels similar. She admits to hematuria, dysuria, and urinary frequency. She denies fever, abdominal pain, nausea, vomiting, diarrhea, and abnormal vaginal discharge. PFSH <NOHEMI Granado - Last Filed: 10/03/22 22:03> [facility] Medical History Depression Hyperlipidemia Kidney stone Home Medications aripiprazole 2 mg tablet 10 mg PO DAILY 06/01/20 [History Last Taken Unknown] bupropion HCl 300 mg 24 hr tablet, extended release 300 mg PO DAILY 06/01/20 [History Last Taken Unknown] dextroamphetamine-amphetamine 10 mg tablet 10 mg PO BID 06/01/20 [History Last Taken Unknown] tamsulosin 0.4 mg capsule 0.4 mg PO DAILY #10 caps 07/24/20 [Rx Last Taken Unknown] ciprofloxacin HCl 500 mg tablet 500 mg PO BID #14 tabs 10/03/22 [Rx Last Taken Unknown] nitrofurantoin monohydrate/macrocrystals 100 mg capsule 100 mg PO BID 10/03/22 [History Last Taken Unknown] oxycodone-acetaminophen 5 mg-325 mg tablet (Percocet) 1 tab PO Q6H PRN pain 3 days #10 tabs 10/03/22 [Rx Last Taken Unknown] tamsulosin 0.4 mg capsule (Flomax) 0.4 mg PO DAILY #7 caps 10/03/22 [Rx Last Taken Unknown] Allergy/AdvReac Type Severity Reaction Status Date / Time citalopram [From Celexa] Allergy Nausea Verified 10/03/22 20:17 tape Allergy Rash Uncoded 10/03/22 20:17 Social History Smoking Status: Former smoker ROS <NOHEMI Granado - Last Filed: 10/03/22 22:03> ROS ED Constitutional Constitutional ED: Denies chills, fever(s) or sweats Eyes Eyes: Denies blurry vision or change in vision ENT ENT ED: Denies rhinorrhea or sore throat Cardiovascular Cardiovascular: Denies chest pain or palpitations Respiratory/Chest Respiratory/Chest: Denies cough or dyspnea Gastrointestinal Gastrointestinal: Denies abdominal pain, diarrhea, nausea or vomiting Genitourinary Genitourinary ED: Reports decreased urination, dysuria, hematuria and urinary fr equency Musculoskeletal Musculoskeletal: Denies arthralgias or myalgias Integumentary Denies abscess, Abrasions or rash Neurologic Neurologic: Denies headache(s) or weakness Psychiatric Psychiatric: Denies anxiety EXAM <NOHEMI Granado - Last Filed: 10/03/22 22:03> Physical Exam Const Vital Signs: 10/03/22 20:14 10/03/22 23:06 Temperature 98.2 F Temperature Source Temporal Pulse Rate 92 74 Respiratory Rate 18 16 Blood Pressure 137/90 H 116/87 H Blood Pressure Mean 105 96 Pulse Ox 97 99 Oxygen Delivery Method Room Air Room Air Positive obese Nutritional Appearance: obese HEENT Reports moist mucous membranes Negative for trauma or tenderness Eyes PERRL and EOMs intact bilaterally Neck supple Resp normal respiratory effort and clear to auscultation bilaterally Cardio regular rate, regular rhythm and no murmurs GI normal to inspection, nondistended, normoactive bowel sounds, soft to palpation and no masses GI Narrative: Some tenderness to palpation to right lower quadrant that is referred from her flank pain. Back/Spine General Back: CVA tenderness right Extremity normal to inspection and full ROM Neuro oriented x3, CN's II-XII intact bilaterally and no sensory deficits noted Sensorium / Orientation: alert Motor Exam: strength 5/5 throughout Psych mental status grossly normal Skin no rashes or lesions noted and no wounds <Dr. Yusuf Olmstead MD - Last Filed: 10/03/22 23:39> Physical Exam Const Vital Signs: 10/03/22 20:14 10/03/22 23:06 Temperature 98.2 F Temperature Source Temporal Pulse Rate 92 74 Respiratory Rate 18 16 Blood Pressure 137/90 H 116/87 H Blood Pressure Mean 105 96 Pulse Ox 97 99 Oxygen Delivery Method Room Air Room Air [facility] <NOHEMI Granado - Last Filed: 10/03/22 22:03> [facility] Lab Data Attestation: I reviewed the patient's lab results. Lab results narrative: CBC within normal limits, BMP unremarkable. It appears she still has a UTI. Labs: Laboratory Results - last 24 hr 10/03/22 10/03/22 10/03/22 20:50 21:00 21:00 WBC 10.8 RBC 4.36 Hgb 12.9 Hct 39.3 MCV 90.1 MCH 29.6 MCHC 32.8 RDW Std Deviation 38.9 RDW Coeff of Joce 11.9 Plt Count 226 MPV 10.0 Immature Gran % (Auto) 0.400 Neut % (Auto) 54.8 Lymph % (Auto) 34.1 [place] % (Auto) 7.3 Eos % (Auto) 2.7 Baso % (Auto) 0.7 Absolute Neuts (auto) 5.9 Absolute Lymphs (auto) 3.67 Nucleated RBC % 0 Sodium 141 Potassium 4.0 Chloride 108 H Carbon Dioxide 26.0 Anion Gap 7 BUN 23 H Creatinine 1.23 H Estim Creat Clear Calc 51.97 Est GFR (MDRD) Af Amer 61 Est GFR (MDRD) Non-Af 50 L BUN/Creatinine Ratio 18.7 Glucose 95 Calcium 9.0 Serum , Qual Urine Color SEE COMMENT BELOW Urine Clarity Sl. Cloudy Urine pH 6.0 Ur Specific [place] 1.020 Urine Protein 30 H Urine Glucose (UA) Normal Urine Ketones Negative Urine Occult Blood 150 H Urine Nitrite Positive H Urine Bilirubin 6 H Urine Urobilinogen 12 H Ur Leukocyte Esterase 500 H Urine RBC 0-5 SEEN Urine WBC 25-50 SEEN Ur Squamous Epith Cells 0-5 SEEN Calcium Oxalate Crystal 3+ Other Crystals Urine Bacteria 1+ Urine Mucus 4+ 10/03/22 21:00 WBC RBC Hgb Hct MCV MCH MCHC RDW Std Deviation RDW Coeff of Joce Plt Count MPV Immature Gran % (Auto) Neut % (Auto) Lymph % (Auto) [place] % (Auto) Eos % (Auto) Baso % (Auto) Absolute Neuts (auto) Absolute Lymphs (auto) Nucleated RBC % Sodium Potassium Chloride Carbon Dioxide Anion Gap BUN Creatinine Estim Creat Clear Calc Est GFR (MDRD) Af Amer Est GFR (MDRD) Non-Af BUN/Creatinine Ratio Glucose Calcium Serum , Qual NEGATIVE Urine Color Urine Clarity Urine pH Ur Specific [place] Urine Protein Urine Glucose (UA) Urine Ketones Urine Occult Blood Urine Nitrite Urine Bilirubin Urine Urobilinogen Ur Leukocyte Esterase Urine RBC Urine WBC Ur Squamous Epith Cells Calcium Oxalate Crystal Other Crystals Urine Bacteria Urine Mucus Radiography Diagnostic Testing: Clinical Impression(s) from Imaging Studies Abdomen/Pelvis CT 10/03/22 20:43 IMPRESSION: 5 mm obstructing distal right ureteral stone resulting in mild to moderate hydronephrosis. Nonobstructing 3 and 4 mm stones inferior pole left kidney. Electronically Signed: Sunil Jessica, DO at 22:58 EST , <Dr. Yusuf Olmstead MD - Last Filed: 10/03/22 23:39> [facility] Narrative Medical decision making narrative: CT showed some hydronephrosis with a 5 mm distal UVJ stone on the right. But looking at the images I do not see a lot of significant stranding of the kidney itself. Urine does show signs consistent with infection. She has increased white cells at 25-50. She has leukocyte Estrace and nitrites. Only 1+ bacteria. Her blood work showed normal white count hemoglobin and normal platelets. Electrolytes show no marked abnormalities. I talked with the patient that were concerned that she has signs of UTI and kidney stone. Although she has been on 3 antibiotics the antibiotics were changed because she was still having discomfort. I do not think this was actually failure of antibiotics. She has done well with Cipro. This is heavily concentrated in the urine and so I think this would be the best antibiotic to be on at this time. I will write for some Flomax which she no longer has. She does have medicines at home for nausea. I will add pain medicine. She would not prefer to be admitted elsewhere. I explained that I do not have a urologist on-call now. She would prefer to go home because she does not feel ill. She does not even want any medicines for pain at this time. She will call her urologist Dr. Prince on Wednesday. I explained that if she gets fevers chills vomiting or feels ill in any way or other concerns she should return. Lab Data Labs: Laboratory Results - last 24 hr 10/03/22 10/03/22 10/03/22 20:50 21:00 21:00 WBC 10.8 RBC 4.36 Hgb 12.9 Hct 39.3 MCV 90.1 MCH 29.6 MCHC 32.8 RDW Std Deviation 38.9 RDW Coeff of Joce 11.9 Plt Count 226 MPV 10.0 Immature Gran % (Auto) 0.400 Neut % (Auto) 54.8 Lymph % (Auto) 34.1 [place] % (Auto) 7.3 Eos % (Auto) 2.7 Baso % (Auto) 0.7 Absolute Neuts (auto) 5.9 Absolute Lymphs (auto) 3.67 Nucleated RBC % 0 Sodium 141 Potassium 4.0 Chloride 108 H Carbon Dioxide 26.0 Anion Gap 7 BUN 23 H Creatinine 1.23 H Estim Creat Clear Calc 51.97 Est GFR (MDRD) Af Amer 61 Est GFR (MDRD) Non-Af 50 L BUN/Creatinine Ratio 18.7 Glucose 95 Calcium 9.0 Serum , Qual Urine Color SEE COMMENT BELOW Urine Clarity Sl. Cloudy Urine pH 6.0 Ur Specific [place] 1.020 Urine Protein 30 H Urine Glucose (UA) Normal Urine Ketones Negative Urine Occult Blood 150 H Urine Nitrite Positive H Urine Bilirubin 6 H Urine Urobilinogen 12 H Ur Leukocyte Esterase 500 H Urine RBC 0-5 SEEN Urine WBC 25-50 SEEN Ur Squamous Epith Cells 0-5 SEEN Calcium Oxalate Crystal 3+ Other Crystals Urine Bacteria 1+ Urine Mucus 4+ 10/03/22 21:00 WBC RBC Hgb Hct MCV MCH MCHC RDW Std Deviation RDW Coeff of Joce Plt Count MPV Immature Gran % (Auto) Neut % (Auto) Lymph % (Auto) [place] % (Auto) Eos % (Auto) Baso % (Auto) Absolute Neuts (auto) Absolute Lymphs (auto) Nucleated RBC % Sodium Potassium Chloride Carbon Dioxide Anion Gap BUN Creatinine Estim Creat Clear Calc Est GFR (MDRD) Af Amer Est GFR (MDRD) Non-Af BUN/Creatinine Ratio Glucose Calcium Serum , Qual NEGATIVE Urine Color Urine Clarity Urine pH Ur Specific [place] Urine Protein Urine Glucose (UA) Urine Ketones Urine Occult Blood Urine Nitrite Urine Bilirubin Urine Urobilinogen Ur Leukocyte Esterase Urine RBC Urine WBC Ur Squamous Epith Cells Calcium Oxalate Crystal Other Crystals Urine Bacteria Urine Mucus Radiography Diagnostic Testing: Clinical Impression(s) from Imaging Studies Abdomen/Pelvis CT 10/03/22 20:43 IMPRESSION: 5 mm obstructing distal right ureteral stone resulting in mild to moderate hydronephrosis. Nonobstructing 3 and 4 mm stones inferior pole left kidney. Electronically Signed: Sunil Lopez, at 22:58 EST , CT shows 5 mm stone with mild to moderate hydronephrosis. Treatment and Re-Evaluation Narrative: I have personally performed a face to face assessment of the patient and have reviewed the ANDREW Note. I performed a substantive portion of the visit including all aspects of the following. My campos findings include: History of some dysuria and pain with urination for about 16 days. At first this did not seem quite like a kidney stone. But she does have some intermittent pain in the right flank. She has been treated with 3 antibiotics. But Bactrim and Cipro she only took for about 2 maybe 3 days. She was still having pain so they change them. No work-up for kidney stone was done yet. But she is now thinking that is probably what she has. She has never had fevers or chills. Exam is consistent with a nontoxic-appearing patient. She does not want anything for pain. There is a little bit of right CVA tenderness but not significantly. Abdomen is overall benign. There is a small amount of suprapubic tenderness 2. No rebound or guarding Medical Decison Making: Blood work is normal. Urine shows signs of infection and scan does show a kidney stone. Please see above for medical decision- making. Discharge Plan Triage Chief Complaint: Flank Pain ED Midlevel Provider: Malorie Basurto ED Provider: Yusuf Olmstead Dx/Rx/DC Orders Clinical Impression: Right ureteral calculus, UTI (urinary tract infection) Instructions: Urinary Tract Infections in Women, ED Kidney Stone w/ Colic Prescriptions: New ciprofloxacin HCl [ciprofloxacin HCl] 500 mg tablet 500 mg PO BID Qty: 14 0RF oxycodone-acetaminophen [Percocet] 5-325 mg tablet 1 tab PO Q6H PRN (Reason: pain) 3 Days Qty: 10 0RF tamsulosin [Flomax] 0.4 mg capsule 0.4 mg PO DAILY Qty: 7 0RF No Action dextroamphetamine-amphetamine 10 MG tablet 10 mg PO BID bupropion HCl 300 MG tablet extended release 24 hr 300 mg PO DAILY aripiprazole 2 MG tablet 10 mg PO DAILY tamsulosin 0.4 MG capsule 0.4 mg PO DAILY Qty: 10 0RF nitrofurantoin monohyd/m-cryst 100 mg capsule 100 mg PO BID Primary Care Provider: Vee Crowell Referrals: Dylon Prince MD [Med Staff - Active Staff] - As soon as possible Vee Crowell, INFUSION RN-C [Primary Care Provider] - Disposition Disposition: Home, Self Care
--- NOTE | 2022-10-03 20:43 | CT_ITS ---
INDICATION: Kidney Stone EXAMINATION: CT ABDOMEN AND PELVIS WITHOUT CONTRAST - CT Abdomen And Pelvis W/O Contrast Injection TECHNIQUE: Helically acquired images were obtained of the abdomen and pelvis without oral or IV contrast. A radiation dose optimization technique was used for this scan. IV Contrast dosage and agent: None. Oral contrast: None. COMPARISON: CT abdomen and pelvis 09/16/2020. FINDINGS: LOWER CHEST: Scarring left lateral lung base was present on the 2019 CT exam. No cardiomegaly or pericardial effusion. No hiatal hernia. LIVER: Homogeneous. No focal mass. GALLBLADDER AND BILIARY TREE: No calcified gallstones. No gallbladder distension or wall edema. No intra- or extrahepatic biliary ductal dilation. PANCREAS: No focal cystic or solid mass. SPLEEN: Normal size without focal cystic or solid mass. ADRENAL GLANDS: No nodules. KIDNEYS, URETERS and BLADDER: Normal renal size and position. No mass. Right-sided hydronephrosis and hydroureter from a 5 mm distal right ureteral stone. No other right-sided genitourinary stone. Nonobstructive, adjacent, 3 and 4 mm stones seen in the inferior pole left kidney. Bladder is unremarkable. PERITONEUM: No ascites or free air. No other fluid collection. Benign 13 mm peritoneal calcification anterior and superior to the urinary bladder. BOWEL: Appendix contains a few punctate calcifications without inflammatory changes. No abnormally distended bowel loops or air fluid levels. No wall thickening or mass. No focal inflammatory changes. Sutures along the greater curvature of the stomach suggesting prior sleeve gastrectomy. LYMPH NODES: No enlarged mesenteric or retroperitoneal lymph nodes. VESSELS: Aorta is non-dilated. Minimal abdominal aortic intimal calcifications without narrowing. REPRODUCTIVE ORGANS: Absent. ABDOMINAL WALL: No discrete abdominal or pelvic wall hernia. BONES: No lytic or blastic abnormality. L5-S1 transpedicular screws and bridging rods osseous endplate fusion with spacer hardware. CT/Abdomen/Pelvis without Cont IMPRESSION: 5 mm obstructing distal right ureteral stone resulting in mild to moderate hydronephrosis. Nonobstructing 3 and 4 mm stones inferior pole left kidney. Electronically Signed: Sunil Lopez DO at 22:58 EST ,
[2022-10-03] MEDS: 0.9% Normal Saline 1,000 ML 999 ML IV (21:00)
[2022-10-03 21:07] LABS: Glucose, Dipstick Normal (Normal); Ketone-Dipstick Negative (Negative); Leukocyte Esterase-Dipstick 500 /ul (Negative); Nitrite-Dipstick Positive (Negative); Occult Blood-Urine 150 /ul (Negative); Protein-Dipstick 30 mg/dl (Negative); Urine Clarity Sl. Cloudy (Clear); Urine Urobilinogen 12 mg/dl (Normal)
[2022-10-03 21:07] LABS: Absolute Lymphocyte Count 3.67 X10^3/uL (0.83-4.51); Absolute Neutrophil Count 5.9 X10^3/uL (2.0-7.7); Basophil# 0.08 X10^3/uL; Basophil% 0.7 % (0-1); Eosinophil# 0.29 X10^3/uL; Eosinophils% 2.7 % (0-5); Hematocrit 39.3 % (37-47); Hemoglobin 12.9 g/dL (12.0-15.0); Lymphocyte # 3.67 X10^3/ul (0.83-4.51); Lymphocyte % 34.1 % (19-41); Mean Corp Hgb Conc 32.8 g/dL (32-36); Mean Corpuscular Hgb 29.6 pg (27.0-32.0); Mean Corpuscular Volume 90.1 fL (81-99); Monocyte# 0.79 X10^3/uL; Monocyte% 7.3 % (0-10); NRBC Flagged by Analyzer 0 % (0-5); Neutrophil % 54.8 % (47-70); Platelet Count 226 K/mm3 (150-450); RBC Distribution Width CV 11.9 % (11.6-14.6); RBC Distribution Width SD 38.9 fl (35.1-43.9); Red Blood Count 4.36 M/mm3 (4.2-5.4); White Blood Count 10.8 K/mm3 (4.4-11.0)
[2022-10-03 21:15] LABS: Color, Urine SEE COMMENT BELOW (Yellow); Urine Bilirubin Dipstick 6 mg/dL (Negative)
[2022-10-03 21:24] LABS: Anion Gap 7 (5-15); BUN 23 mg/dL (7-18); BUN/Creat Ratio 18.7 RATIO (10-20); Chloride 108 mmol/L (98-107); Creatinine, Serum 1.23 mg/dL (0.55-1.02); EST Glomerular Filtration Rate 50 mL/min (>60); Est Glom Filt Rate - Afr Amer 61 mL/min (>60); Estimated Creatinine Clearance 51.97 ml/min; Glucose 95 mg/dL (74-106); Sodium Level 141 mmol/L (136-145)
[2022-10-03 21:25] LABS: Mucous, Urine 4+ /hpf (<or=2+); Red Blood Cells-Urine 0-5 SEEN /hpf (0-5); Squamous Epithelial Cells - UA 0-5 SEEN /hpf (5-10)
[2022-10-03 21:26] LABS: Bacteria 1+ /hpf (None Seen); Calcium Oxalate Crystals Ur 3+ /hpf (<or=2+)
[2022-10-03 21:27] LABS: Internal QC Validated? YES +Cl - CLEAR BKGD; Pregnancy, Serum, hCG Quali. NEGATIVE Negative
[2022-10-03 21:27] LABS: White Blood Cells 25-50 SEEN /hpf (0-5)
[2022-10-03 23:06] VITALS: BP 116/87; PULSE 74; RESP 16; O2SAT 99
[2022-10-03 23:41] VITALS: BP 116/87; PULSE 74; RESP 16; O2SAT 99
== END 2022-10-03 23:45 | disposition home or self-care (01) ==
PROVIDERS: Physician Assistant; Emergency Provider Emergency Medicine; PCP Nurse Practitioner Family; Visit Provider Emergency Medicine
DX: N13.30 Unspecified hydronephrosis (principal); E78.5 Hyperlipidemia, unspecified; R31.9 Hematuria, unspecified; R35.0 Frequency of micturition; Z87.891 Personal history of nicotine dependence; N39.0 Urinary tract infection, site not specified
CPT/HCPCS: 74176; 80048; 81001; 84703; 85025; 87086; 87088; 96360; 96361; 99283; J7030; A4216